=== PATIENT | male | born 1950 | race Caucasian/White ===

== ENCOUNTER 2022-05-11 10:21 | Emergency (ER) | payer MEDICARE, BC ==
[~2022-05-11] VITALS: Ht 170.2 cm; Wt 80.0 kg
[2022-05-11] MEDS ORDERED: ASPIRIN81 MG PO (11:52)
[2022-05-11] MEDS ORDERED: POTASSIUM CHLO20 ME1 PO (11:52)
[2022-05-11] MEDS ORDERED: IRON27 MG PO (11:53)
[2022-05-11] MEDS ORDERED: CONSTULOSE10 GM/15 M (11:53)
[2022-05-11] MEDS ORDERED: MYRBETRIQ25 MG (11:54)
[2022-05-11] MEDS ORDERED: [UNRECOGNIZED DRUG - OTHER] (11:55)
[2022-05-11] MEDS ORDERED: ONDANSETRON4 MG PO (11:55)
[2022-05-11 12:36] LABS: BASO% 0.7 % (0-3); EOS% 6.5 % (0-8); LYMPH% 43.5 % (15-41); MEAN CELL VOLUME 103.1 fL CALC (80.0-100.0); MEAN CORPUSCULAR HGB 34.4 pG CALC (26.0-32.0); MEAN CORPUSCULAR HGB CONC 33.3 g/dL CAL (32.0-36.0); MONO% 14.1 % (2-13); NEUT# 0.97 thou/uL (1.82-7.42); NEUT% 35.2 % (42-76); RED BLOOD COUNT 2.62 mill/uL (4.70-6.10); RED CELL DISTRI WIDTH 15.6 % (11.5-15.5)
[2022-05-11 13:03] LABS: INTERNATIONAL NORMALIZED RATIO 1.1 RATIO (0.7-1.3); PROTHROMBIN TIME 10.9 SECONDS (9.0-12.5)
[2022-05-11 13:07] LABS: ALBUMIN 4.5 g/dL (3.2-5.0); ALKALINE PHOSPHATASE 70 u/l (38-126); ANION GAP 13 (6-22 (CALC)); BILIRUBIN, TOTAL 1.2 mg/dL (0.2-1.3); BUN 21 mg/dL (8-23); BUN/CREATININE RATIO 20 (12-20 (CALC)); CARBON DIOXIDE 25 mmol/l (22-30); CHLORIDE 106 mmol/l (95-108); CREATININE 1.1 mg/dL (0.7-1.3); GFR FOR AFR.AMER. > 60 ML/MIN (>=60 (CALC)); GFR OTHER RACES > 60 ML/MIN (>=60 (CALC)); SGOT/AST 62 u/l (19-48); SODIUM 140 mmol/l (137-146); TOTAL PROTEIN 7.6 g/dL (6.3-8.2)
[2022-05-11] MEDS ORDERED: BACTRIM DS1 TAB PO (13:33)
[2022-05-11 14:17] VITALS: BP 145/65
== END 2022-05-11 14:28 | disposition home or self-care (01) ==
LOC: ED 10:21
PROVIDERS: Nurse Practitioner
PROC: 0H97XZZ Drainage of Abdomen Skin, External Approach (ICD-10-PCS; principal; 2022-05-11)
DX: S30.1XXA Contusion of abdominal wall, initial encounter (principal); I10 Essential (primary) hypertension; C80.1 Malignant (primary) neoplasm, unspecified; F17.200 Nicotine dependence, unspecified, uncomplicated; X58.XXXA Exposure to other specified factors, initial encounter; Z79.899 Other long term (current) drug therapy

== ENCOUNTER 2022-05-13 10:50 | Emergency (ER) | payer MEDICARE, BC ==
[~2022-05-13] VITALS: Ht 170.2 cm; Wt 75.0 kg
[~2022-05-13 10:50] MED LIST: ASPIRIN81 MG PO; BACTRIM DS1 TAB PO; CONSTULOSE10 GM/15 M; IRON27 MG PO; MYRBETRIQ25 MG; ONDANSETRON4 MG PO; POTASSIUM CHLO20 ME1 PO; [UNRECOGNIZED DRUG - OTHER]
[2022-05-13 11:03] VITALS: BP 116/59
[2022-05-13 11:16] VITALS: BP 120/48
[2022-05-13 11:30] VITALS: BP 114/40
[2022-05-13 11:56] VITALS: BP 121/60
== END 2022-05-13 11:56 | disposition home or self-care (01) ==
LOC: ED 10:50
DX: Z48.01 Encounter for change or removal of surgical wound dressing (principal); I10 Essential (primary) hypertension; F17.200 Nicotine dependence, unspecified, uncomplicated